=== PATIENT | male | born 1985 | race Caucasian/White ===

== ENCOUNTER → 2022-01-30 | Day surgery (SDC) | payer OTHER ==
[~2022-01-30] VITALS: Ht 188 cm; Wt 74.8 kg
[~2022-01-30] MED LIST: VITAMIN B-121000 MC1 PO; VITAMIN D-40010 MCG PO
[2022-01-30 07:55] LABS: HCT 44.2 % (42.0-52.0); HGB 15.6 g/dl (13.2-18.0); MCH 33.8 pg (25.0-31.0); MCHC 35.3 g/dL (32.0-36.0); MCV 95.9 fL (78.0-100.0); MPV 10.3 fL (6.0-9.5); RBC 4.61 M/uL (4.70-6.00); RDW 12.9 % (11.5-14.0); WBC 4.8 K/uL (4.0-10.5)
[2022-01-30 08:56] LABS: BILIRUBIN - TOTAL 1.4 mg/dL (0.2-1.0); BUN/CREAT RATIO (CALC) 12.5 RATIO; CREATININE 0.8 mg/dL (0.67-1.17); GLOBULIN (CALCULATION) 2.8 g/dL; POTASSIUM 3.8 mmol/L (3.5-5.1); TOTAL PROTEIN 7.8 g/dL (6.4-8.2)
== END | disposition home or self-care (01) ==
LOC: FAS 01-28 08:55
PROVIDERS: Surgery
DX: K92.1 Melena (principal); K64.1 Second degree hemorrhoids; K58.2 Mixed irritable bowel syndrome; K57.30 Diverticulosis of large intestine without perforation or abscess without bleeding
CPT/HCPCS: 36415; 80053; J2704; J7120